=== PATIENT | female | born 1995 | race Caucasian/White ===

== ENCOUNTER → 2016-12-22 | Outpatient (CLI) | payer MEDICAID ==
[~2016-12-22] MED LIST: AMOXICILLIN875 MG PO; AURALGAN OT10 ML/BOT OT; BACTRIM DS 8001 TA1 PO; BACTRIM DS 8001 TAB PO; FERROUS SULFAT325 M2 PO; IRON TABLETS325 MG PO; KEFLEX 500MG.500 MG PO; LEXAPRO 10 MG T10 MG PO; NAPROSYN 500MG500 MG PO; NOMEDS; NOMEDS XX; PERCOCET 500 MG1 TAB PO; PRENATAL PLUS1 TA1 PO; SPRINTEC 35 MCG1 TAB PO; ZOFRAN4 MG PO
--- NOTE | 2016-12-22 23:53 | RADIOLOGY REPORT PS360 ---
US PELVIS-TRANSVAGINAL ONLY HISTORY: DUB dysfunctional uterine bleeding Patient Age: 21 years: Female Ordering Physician: Nelson Stoll MD TECHNIQUE: Transvaginal pelvic ultrasound COMPARISON :Transvaginal 12/06/2014 pelvic ultrasound FINDINGS : Uterus appears upper normal size 8.9 cm length x 3.8 cm AP x4.7 seem in transverse . Slightly generous myometrium views into to the endometrial stripe at the body of uterus. However I cannot define a discrete fibroid here. . Tiny nabothian cyst adjacent to the cervical canal Endometrial stripe normal thickness 3.3 mm.. Left ovary 2.7 x 1.7 x 1.9 cm. Right ovary 4.1 x 2.6 T 2.2 cm. . There is a 2.8 x 2.2 cm right ovarian cyst. 4 IMPRESSION: The uterus upper normal size. Question Mild fullness anterior myometrium body of uterus, but no discrete fibroid identified. Normal endometrial stripe. Left ovary normal up to 2.7 cm size., with Left ovarian cyst 1.5 cm Enlarged right ovary measured 4.1 cm maximally. More prominent Right Ovarian Cyst 2.8 cm x 2.2 cm No fluid in cul-de-sac
== END ==
LOC: RAD 15:30
DX: N93.8 Other specified abnormal uterine and vaginal bleeding (principal)

== ENCOUNTER → 2017-01-27 | Outpatient (CLI) | payer MEDICAID ==
[2017-01-27 12:00] LABS: LYMPH % 32.2 % (10-50.0)
[2017-01-27 12:08] LABS: HEMOGLOBIN 13.6 g/dL (12.2-16.2)
[2017-01-27 12:51] LABS: URINE BILIRUBIN - DIPSTICK NEGATIVE (NEG); URINE BLOOD 1+ (NEG)
[2017-01-27 14:35] LABS: BUN 9 mg/dL (7-18)
[2017-01-27 14:36] LABS: GFR (ESTIMATED) 69 ML/MIN (59-)
== END ==
LOC: LAB 11:39
PROVIDERS: Obstetrics & Gynecology
DX: N83.201 Unspecified ovarian cyst, right side (principal); N92.0 Excessive and frequent menstruation with regular cycle; Z01.812 Encounter for preprocedural laboratory examination

== ENCOUNTER 2017-01-28 06:09 | Day surgery (SDC) | payer MEDICAID ==
[~2017-01-28] VITALS: Ht 167.6 cm; Wt 78.0 kg
--- NOTE | 2017-01-28 08:13 | Anesthesia Record ---
Anesthesia Record Part I Total IV fluids: 1200 EBL (ml): 20 Urine Output: 25 B/P: 90/47 % SaO2: 94 Pulse: 65 Resps: 16 Temp: 97.3 Patient is: Drowsy, Stable Stable to PACU at: 0810 at 0813
--- NOTE | 2017-01-28 08:14 | Anesthesia Record ---
Anesthesia Record Part II Discharge time: 0840 Destination: Same day surgery PACU nurse assessment review? Yes Patient is: Stable Anesthesia complications? No at 0813
--- NOTE | 2017-01-28 08:17 | Operative Note ---
Procedure/Operative Record Date of Procedure: 01/28/17 Referring physician: Dr. Medina Pre-op diagnosis: 1. Dysfunctional uterine bleeding. 2. RIGHT ovarian cyst. Post-op diagnosis: 1. Dysfunctional uterine bleeding. 2. Leaking RIGHT ovarian cyst. 3. Diffuse endometriosis. Procedure performed: 1. Diagnostic hysteroscopy. 2. Fractional dilatation and curettage. 3. Diagnostic laparoscopy. Surgeon: Nelson Stoll Anesthesia: Gen., [employer] Indications: 1. Dysfunctional uterine bleeding. 2. RIGHT ovarian cyst. Description of procedure: After the patient was prepped and draped in usual fashion and general anesthesia was administered, examination under anesthesia revealed a normal-sized anteverted uterus, with no adnexal masses palpable. A weighted speculum was placed within the posterior fourchette of the vagina, and the anterior lip of the cervix was grasped with a single-tooth tenaculum. There was good descensus. A small curette was introduced into the endocervix, with retrieval of a small amount of endocervical tissue. The uterus was then sounded in an anteverted direction to 9 cm, and easily dilated to number 20 Hegar dilators. Using 1.5 percent glycine as a distending medium, and operating hysteroscope was introduced into the endometrial cavity. The tissue was hyperplastic, but no distinct polyps or tumors. A sharp curette was introduced into the endometrial cavity, with retrieval of a moderate amount of lush endometrium. Reintroduction of the hysteroscope revealed no further pathology. The hysteroscope was then removed and replaced with a HUMI uterine elevator, and the bulb was inflated for easy uterine manipulation during the laparoscopy. After appropriate regloving, the skin on either side of the umbilicus was tented up with towel clips. A small incision was made in the umbilicus with a knife, and a Veress needle was inserted into the abdominal cavity. After demonstration of negative pressure, and adequate phisoperitoneum was created with carbon dioxide gas. The Veress needle was then replaced with a trocar and cannula, using the [employer]STYLHUNT system, and the trocar replaced with a laparoscope. The uterus was of normal size and configuration. Each tube was followed out to its fimbriated end, which appeared free. The LEFT ovary was normal. The RIGHT ovary demonstrated a small cyst, which appeared to be leaking. There was a small amount of serosanguineous fluid in the cul-de-sac, and this was suctioned. Inspection of the pelvis revealed diffuse reddish and yellowish endometrial implants throughout. There were no adhesions, no was there any other pathology. The upper abdomen was explored and found to be normal. The phisoperitoneum was then reduced, and the instruments removed under direct visualization. The skin incision was infused with a dilute solution of Marcaine, as a local anesthetic, and closed with a subcuticular suture of 3-0 Vicryl. The wound was appropriately dressed. The HUMI was deflated and removed. The sponge and needle count was correct. The estimated blood loss was 20 mL. The patient tolerated the procedure well, and was taken to PACU in excellent condition. She will be discharged today, if her vital signs are stable. EBL (ml): 20 Complications: None Specimens: Curettings at 0816
[2017-01-28 09:33] LABS: HEMOGLOBIN 12.3 g/dL (12.2-16.2)
[2017-01-28 13:59] VITALS: BP 108/51
== END 2017-01-28 09:26 | disposition home or self-care (01) ==
LOC: SDC 06:09
PROVIDERS: Obstetrics & Gynecology
PROC: 0WJJ4ZZ Inspection of Pelvic Cavity, Percutaneous Endoscopic Approach (ICD-10-PCS; 2017-01-28)
PROC: 0WJG4ZZ Inspection of Peritoneal Cavity, Percutaneous Endoscopic Approach (ICD-10-PCS; 2017-01-28)
PROC: 0UDB8ZX Extraction of Endometrium, Via Natural or Artificial Opening Endoscopic, Diagnostic (ICD-10-PCS; principal; 2017-01-28 07:30)
DX: N93.8 Other specified abnormal uterine and vaginal bleeding (principal); N83.201 Unspecified ovarian cyst, right side; N80.0 Endometriosis of uterus
CPT/HCPCS: J0131; J2405; J2710